=== PATIENT | male | born 1985 | race Hispanic/Latino ===

== ENCOUNTER 2017-08-20 09:38 | Emergency (ER) | payer OTHER ==
[2017-08-20] MEDS ORDERED: NACL 0.9% 1000 ML 1,000 ML IV ONE (10:06)
[2017-08-20] MEDS ORDERED: MORPHINE IV ONE ×2 (10:06→11:33)
[2017-08-20] MEDS ORDERED: ZOFRAN IV ONE (10:06)
[2017-08-20] MEDS ORDERED: TORADOL IV ONE ×2 (10:06→10:08)
--- NOTE | 2017-08-20 10:09 | Emergency Department Report ---
ED Abdominal Pain HPI - General Chief Complaint: Urogenital-Male Stated Complaint: FLANK pain r Source: patient, family Mode of arrival: Ambulatory Limitations: No Limitations - History of Present Illness MD Complaint: flank pain (R) -: Gradual, days(s) ([facility] IN WEEK WITH R FLANK PAIN) Location: R flank Radiation: R flank, other (TO GROIN) Severity: severe Severity scale (0 -10): 10 Quality: sharp Consistency: constant Improves With: nothing Worsens With: nothing Associated Symptoms: nausea. denies: vomiting, diarrhea, fever, chills, constipation, dysuria, hematemesis, hematochezia, melena, hematuria, anorexia, syncope Treatments Prior to Arrival: NSAIDs, other (CIPRO PER MD AT [facility]) - Related Data Allergies Allergy/AdvReac Type Severity Reaction Status Date / Time Penicillins Allergy Anaphylaxis Verified 08/20/17 09:50 ED Review of Systems ROS: Stated complaint: FLANK PAIN Other details as noted in HPI Comment: All other systems reviewed and negative Constitutional: other (IN PAIN ON ADMIT, SCREAMING AND YELLING W PAIN) Gastrointestinal: abdominal pain (R FLANK), nausea. denies: vomiting, diarrhea , constipation, hematemesis, melena Genitourinary: as per HPI, hematuria (DENIES BUT ON UA BLOOD), other (can not void). denies: dysuria, frequency Musculoskeletal: back pain ED Past Medical Hx - Past Medical History Previous Medical History?: No - Surgical History Past Surgical History?: No - Family History Family history: no significant - Social History Smoking Status: Current Every Day Smoker Substance Use Type: None ED Physical Exam - General Limitations: No Limitations General appearance: alert - Head Head exam: Present: normocephalic - Eye Eye exam: Present: PERRL - ENT ENT exam: Present: mucous membranes moist - Neck Neck exam: Present: normal inspection - Respiratory Respiratory exam: Present: normal lung sounds bilaterally - Cardiovascular Cardiovascular Exam: Present: regular rate - GI/Abdominal GI/Abdominal exam: Present: soft, normal bowel sounds - Rectal Rectal exam: Present: deferred - External exam: Present: bleeding (hematuria) - Extremities Exam Extremities exam: Present: normal inspection, full ROM, normal capillary refill - Back Exam Back exam: Present: CVA tenderness (R) - Neurological Exam Neurological exam: Present: alert, oriented X3 - Psychiatric Psychiatric exam: Present: agitated, anxious - Skin Skin exam: Present: warm, dry, pallor ED Course Vital Signs 08/20/17 08/20/17 08/20/17 09:50 10:15 10:16 Temperature 9806 F H Pulse Rate 86 Respiratory 30 H 16 16 Rate O2 Sat by Pulse 100 Oximetry 08/20/17 10:55 Temperature 98.6 F Pulse Rate Respiratory Rate O2 Sat by Pulse Oximetry - Reevaluation(s) Reevaluation #1: 08/20/17 to er w severe r flank pain went to 3 days ago and dc w cipro for uti pt states he had milder pain then he said no xray or scan was done pt suspected the urine had blood then but they did not tell him if it did or not this am woke w severe r flank pain to er w 10.10 pain screaming nausea pale hematuria noted ct noted 4mm obstructed stone mod hydro at the time pt could not urinate labs noted cr normal ua noted uc sent no fever tachypnea bp140/80 on admit see corrected temp in computer no cva tenderness but w rlq pain no n/v cr n wbc noted rocephin iv given ns 1l and then 125 ml/h medicated 3x for severe pain zofran for nausea Reevaluation #2: 08/20/17 11:50 DR CONTRERAS BRIEFED URO PAGED 08/20/17 12:25 [facility] [place] [facility] paged per Dr Contreras pt and updated on medical status and admission likely pt calm and taking po water at present. 08/20/17 13:12 Dr Frandy harvey MD at [facility] for intractable pain secondary to obstructive r stone w infection EMS transfer Fax face sheet [phone] 08/20/17 13:23 EMS phoned will arrive [address] Contreras aware RN aware Reevaluation #3: 08/20/17 14:16 pt to [facility] s via ambulance pt was able to urinate about 300 ml of tea colored urine and since that time he has had better pain control vss on dc hr 90, rr 20, pain 3/10 ambulatory to stretcher to [facility] [place] er for uro to eval pt. ED Medical Decision Making - Lab Data Result diagrams: 08/20/17 10:15 08/20/17 10:15 - Radiology Data Radiology results: report reviewed - Medical Decision Making see note - Differential Diagnosis k stone +/- infection +/- hydro +/- obtruction; cr? Critical care attestation.: If time is entered above; I have spent that time in minutes in the direct care of this critically ill patient, excluding procedure time. ED Disposition Clinical Impression: Nephrolithiasis, Pyelonephritis, Urinary tract obstruction due to kidney stone Disposition: / SHRT-TRM GEN HOSP IP Is pt being admited?: No Does the pt Need Aspirin: No Condition: Stable Referrals: PRIMARY CARE, [Primary Care Provider] - 3-5 Days Time of Disposition: 13:16
[2017-08-20] MEDS ORDERED: ZOFRAN ONE (10:11)
[2017-08-20] MEDS ORDERED: MORPHINE ONE (10:11)
[2017-08-20] MEDS ORDERED: NACL 0.9% 1000 ML 1,000 ML ONE (10:11)
[2017-08-20] MEDS ORDERED: TORADOL ONE (10:11)
[2017-08-20 10:32] LABS: Bacteria,Urine 1+ /HPF (Negative); Bilirubin,Urine NEG (Negative); Blood,Urine LG (Negative); Ketones,Urine 20 mg/dL (Negative); Leukocyte Esterase,Urine NEG (Negative); Mucus,Urine 3+ /HPF; Nitrite,Urine NEG (Negative); Urobilinogen,Urine < 2.0 mg/dL (<2.0)
[2017-08-20 10:47] LABS: RBC,Urine > 182.0 /HPF (0.0-6.0); WBC,Urine < 1.0 /HPF (0.0-6.0)
--- NOTE | 2017-08-20 10:52 | Cat Scan Report ---
CT OF THE ABDOMEN AND PELVIS WITHOUT CONTRAST HISTORY: Abdominal pain. TECHNIQUE: Helical CT without contrast. Sagittal and coronal reformatted images. FINDINGS: A 4 x 4 x 4 millimeter calculus is identified in the distal right ureter. There is moderate up stream right hydronephrosis. No additional nephrolithiasis is appreciated. 1 cm exophytic cyst in the posterior right kidney is noted. The bladder is empty. Normal prostate gland. Within the limits of a noncontrast exam, the remaining abdominal and pelvic viscera are within normal limits. The liver, biliary system, pancreas, spleen, and adrenal glands are unremarkable. The bowel loops are normal caliber and wall thickness. Normal appendix. The aorta is normal caliber. No ascites, bulky adenopathy or inflammatory changes. The lung bases are clear. Normal heart size. No suspicious bony lesion. IMPRESSION: 4 mm distal right ureteral calculus, moderately obstructing.
[2017-08-20 11:12] LABS: Hematocrit 43.7 % (35.5-45.6); Hemoglobin 14.1 gm/dl (11.8-15.2); Mean Corpuscular HGB Conc 32 % (32-34); Mean Corpuscular Hemoglobin 29 pg (28-32); Mean Corpuscular Volume 91 fl (84-94); Red Blood Count 4.82 M/mm3 (3.65-5.03); Red Cell Distribution Width 14.1 % (13.2-15.2)
[2017-08-20 11:21] LABS: INR 1.14 (0.87-1.13)
[2017-08-20 11:27] LABS: Platelet Count 288 K/mm3 (140-440); White Blood Count 26.1 K/mm3 (4.5-11.0)
[2017-08-20] MEDS ORDERED: ROCEPHIN 500 MG in NACL 0.9% 50 ML IV ONE (11:28)
[2017-08-20 11:35] LABS: Alanine Aminotransferase 14 units/L (7-56); Albumin 4.3 g/dL (3.9-5); Albumin/Globulin Ratio 1.8 %; Alkaline Phosphatase 55 units/L (35-129); Anion Gap 18 mmol/L; BUN/Creatinine Ratio 16; Blood Urea Nitrogen 14 mg/dL (9-20); Calcium 8.3 mg/dL (8.4-10.2); Carbon Dioxide 23 mmol/L (22-30); Chloride 99.6 mmol/L (98-107); Glucose 159 mg/dL (75-100); Potassium 3.8 mmol/L (3.6-5.0); Sodium 137 mmol/L (137-145); Total Protein 6.7 g/dL (6.3-8.2)
[2017-08-20 11:38] LABS: Bilirubin,Direct < 0.2 mg/dL (0-0.2)
[2017-08-20 12:10] LABS: Basophils % (Manual) 0 % (0.0-1.8); Blastocytes % (Manual) 0 %; Eosinophils % (Manual) 0 % (0.0-4.3)
[2017-08-20 12:11] LABS: Acanthocytes Few; Burr Cells Few; Elliptocytes Few; Ovalocytes Few; Poikilocytosis Few
[2017-08-20 12:12] LABS: Diff Status Complete; Platelet Estimate Consistent w Auto
[2017-08-20] MEDS ORDERED: NACL 0.9% 1000 ML 1,000 ML IV SCH (13:00)
[2017-08-20 14:27] VITALS: BP 106/59
== END 2017-08-20 14:25 | disposition short-term general hospital (02) ==
LOC: ED 09:38
DX: N20.0 Calculus of kidney (principal); N12 Tubulo-interstitial nephritis, not specified as acute or chronic; N39.0 Urinary tract infection, site not specified; F17.200 Nicotine dependence, unspecified, uncomplicated; Z88.0 Allergy status to penicillin
CPT/HCPCS: 36415; 74176; 80048; 80074; 81001; 82140; 85007; 85025; 85610; 87040; 87086; 96361; 96365; 96375; 96376; 99285; J0696; J1885; J2270; J2405; J7030